=== PATIENT | female | born 1960 | race Caucasian/White ===

== ENCOUNTER 2019-05-24 16:34 | Emergency (ER) | payer MEDICARE, OTHER ==
[2019-05-24 17:21] LABS: ABS Basophils 0.1 10^3/ul (0-0.2); ABS Lymphocytes 1.4 10^3/ul (1.0-4.8); ABS Neutrophils 8.4 10^3/ul (1.5-7.7); Eosinophil % 0.4 %; Hematocrit 33 % (35-47); Hemoglobin 10.8 g/dL (12.0-16.0); Lymphocyte % 12.8 %; Mean Corpuscular HGB Conc 33 g/dL (31-36); Mean Corpuscular Hemoglobin 29 pg (27-31); Mean Corpuscular Volume 87 fL (80-97); Mean Platelet Volume 7.6 fL (7.4-10.4); Nucleated Red Blood Cells % 0.1; Platelet Count 376 10^3/uL (150-450); Red Blood Count 3.74 10^6 /uL (3.70-4.87); Red Cell Distribution Width 12 % (10-15)
[2019-05-24 17:31] LABS: INR 1.2 (0.82-1.09)
[2019-05-24] MEDS ORDERED: Magnesium Sulfate 2 GM IV* 2 GM/50 ML BAG IVPB ONE (17:31)
[2019-05-24 17:38] LABS: Albumin 3.6 g/dL (3.2-5.2); Albumin/Globulin Ratio 1.2 (1-3); BUN/Creatinine Ratio 15.8 (8-20); Calcium 9.1 mg/dL (8.6-10.3); EGFR African American 94.9 (>60); EGFR Non-African American 78.4 (>60); Globulin 3.1 g/dL (2-4); Potassium 3.5 mmol/L (3.5-5.0); Total Bilirubin 0.5 mg/dL (0.2-1.0); Total Protein 6.7 g/dL (6.4-8.9)
[2019-05-24 17:40] LABS: Troponin I 0.02 ng/mL (<0.04)
--- OUTSIDE RECORDS SUMMARY | 2019-05-24 17:51 | XMS REPORT | Continuity of Care Document ---
:1960 External Reference #:[id number] Author Name Marily Knott MD (transmitted by agent of provider Annelise Sauer) Address [address] [place] [address] Care Team Providers Name Role Phone Hemant Obrien MD - Internal Medicine Care Team Information Associate Pastor [phone] Problems Description No Information Available Social History Type Date Description Comments Sex Unknown Tobacco Use Start: Unknown End: Former Cigarette 40 Smoker 1 Pack Daily Smoking Status Reviewed: 05/24/19 Former Cigarette 40 Smoker 1 Pack Daily ETOH Use Denies alcohol use Tobacco Use Start: Unknown End: Patient is a former Unknown smoker Recreational Drug Use Denies Drug Use Exercise Type/Frequency Does not exercise Limited by breathing issue Allergies, Adverse Reactions, Alerts Active Allergies Reaction Severity Comments Date Chantix Made pt mean 05/24/2019 Medications Active Medications SIG Qnty Indications Ordering Provider Date Nebulizer System 1 unit q4 hours 1units J44.9 Marily Knott, 05/24/2019 ALL-In-One and as needed Misc Ipratropium 1 unit every 6 270ml J44.9 Marily Knott, 05/24/2019 Ursa/Albuterol hours as needed Sulfate 0.5-2.5(3)mg/3ML Solution Vitamin D 1 by mouth one Unknown time per week Atorvastatin Calcium Take 1 Tablet By Unknown 10mg Mouth Once Daily Tablets Loratadine 1 by mouth daily Hemant Obrien MD 10mg Tablets Flonase Allergy Relief 2 puffs each Unknown nostril daily 50mcg/Act Suspension Immunizations Description No Information Available Vital Signs Date Vital Result Comment 05/24/2019 9:42am Height 69 inches 5'9" Weight 221.12 lb Heart Rate 128 /min BP Systolic Sitting 118 mmHg Lue large cuff BP Diastolic Sitting 82 mmHg Lue large cuff O2 % BldC Oximetry 95 % On Ra BMI (Body Mass Index) 32.7 kg/m2 Results Description No Information Available Procedures Description No Information Available Medical Devices Description No Information Available Encounters Description No Information Available Assessments Date Code Description Provider 05/24/2019 J98.4 Other disorders of lung Marily Knott MD 05/24/2019 J44.9 Chronic obstructive pulmonary disease, Marily Knott MD unspecified 05/24/2019 Z87.891 Personal history of nicotine dependence Marily Knott MD 05/24/2019 I31.3 Pericardial effusion (noninflammatory) Marily Knott MD Plan of Treatment Future Appointment(s):05/29/2019 1:00 pm - [facility] MD at [facility]06/03/2019 10:45 am - Marily Knott MD at [facility]05/24/2019 - Marily Knott MDJ98.4 Other disorders of lungNew Orders:Endobronchial Ultrasound (Ebus), Ordered: Follow up:2 zofjeA60.9 Chronic obstructive pulmonary disease, unspecifiedNew Medication:Nebulizer System ALL-In-One - 1 unit q4 hours and as neededIpratropium Ursa/Albuterol Sulfate 0.5-2.5(3) mg/3ML - 1 unit every 6 hours as neededNew Orders:6 Minute Walk, Scheduled: 05/24/19PFTW/Spirometry Vol Pre/Post Bronchdilat Dlco Complete, Ordered: 05/24/19Z87.891 Personal history of nicotine chzgcatcirN06.3 Pericardial effusion (noninflammatory)New Orders: Echocardiogram, Scheduled: 05/24/19 Functional Status Description No Information Available Mental Status Description No Information Available Referrals Description No Information Available
--- NOTE | 2019-05-24 18:16 | ED ---
Shortness of Breath - HPI Summary HPI Summary: This patient is a 59 year old female presenting to [facility] with a chief complaint of SOB. She states she recently had a TTE with Dr. Knott following an abnormal CT chest due to a known mass in her lung. The TTE found pericardial effusion and cardiac tamponade. She states she has no other complaints besides the SOB. Pt denies any fever, chills, erythema of eyes, sore throat, CP, cough, abdominal pain, N/V, dysuria, hematuria, myalgia, edema, rash, or dizziness. - History of Current Complaint Chief Complaint: EDShortnessOfBreath Time Seen by Provider: 05/24/19 16:49 Hx Obtained From: Patient Onset/Duration: Lasting Days Dyspnea At: Rest - Allergy/Home Medications Allergies/Adverse Reactions: Allergies Allergy/AdvReac Type Severity Reaction Status Date / Time varenicline [From Chantix] Allergy Agitation Verified 05/24/19 16:40 Home Medications: Home Medications Atorvastatin* [Lipitor*] 10 mg PO DAILY 05/24/19 [History Confirmed 05/24/19] Ergocalciferol CAP* [Drisdol CAP*] 50,000 unit PO WEEKLY 05/24/19 [History Confirmed 05/24/19] LoraTADine TAB(NF) [Claritin 10 MG TAB(NF)] 10 mg PO DAILY 05/24/19 [History Confirmed 05/24/19] PMH/Surg Hx/FS Hx/Imm Hx Cardiovascular History: Reports: Hx Hypercholesterolemia Respiratory History: Reports: Hx Chronic Obstructive Pulmonary Disease (COPD), Hx Pneumonia Infectious Disease History: No Infectious Disease History: Denies: Traveled Outside the [place] in Last 30 Days - Family History Known Family History: Positive: Cardiac Disease, Hypertension, Diabetes - Social History Alcohol Use: None Substance Use Type: Reports: None Smoking Status (MU): Former Smoker Review of Systems Negative: Fever, Chills Negative: Erythema Negative: Sore Throat Negative: Chest Pain Positive: Shortness Of Breath. Negative: Cough Negative: Abdominal Pain, Vomiting, Nausea Negative: dysuria, hematuria Negative: Myalgia, Edema Negative: Rash Neurological: Other - Neg: Dizziness All Other Systems Reviewed And Are Negative: No Physical Exam - Summary Physical Exam Summary: Constitutional: Well-developed, Well-nourished, Alert. (-) Distressed Skin: Warm, Dry HENT: Normocephalic; Atraumatic Eyes: Conjunctiva normal Neck: Musculoskeletal ROM normal neck. (-) JVD, (-) Stridor, (-) Tracheal deviation Cardio: Rhythm regular, rate normal, Heart sounds normal; Intact distal pulses; The pedal pulses are 2+ and symmetric. Radial pulses are 2+ and symmetric. (-) Murmur Pulmonary/Chest wall: Effort normal. (-) Respiratory distress, (-) Wheezes, (-) Rales Abd: Soft, (-) tenderness, (-) Distension, (-) Guarding, (-) Rebound Musculoskeletal: (-) Edema Lymph: (-) Cervical adenopathy Neuro: Alert, Oriented x3 Psych: Mood and affect Normal Triage Information Reviewed: Yes Vital Signs On Initial Exam: Initial Vitals Temp Pulse Resp BP Pulse Ox 99.7 F 132 22 126/86 95 05/24/19 16:37 05/24/19 16:37 05/24/19 16:37 05/24/19 16:37 05/24/19 16:37 Vital Signs Reviewed: Yes Procedures - Sedation Patient Received Moderate/Deep Sedation with Procedure: No Diagnostics - Vital Signs Vital Signs Temp Pulse Resp BP Pulse Ox 05/24/19 17:24 99 19 109/76 94 05/24/19 17:00 101 26 95 05/24/19 16:53 99 23 112/83 96 05/24/19 16:52 127 24 96 05/24/19 16:37 99.7 F 132 22 126/86 95 - Laboratory Lab Results: Lab Results 05/24/19 05/24/19 05/24/19 Range/Units 17:03 17:03 17:03 WBC 11.0 H (3.5-10.8) 10^3/uL RBC 3.74 (3.70-4.87) 10^6 /uL Hgb 10.8 L (12.0-16.0) g/dL Hct 33 L (35-47) % MCV 87 (80-97) fL MCH 29 (27-31) pg MCHC 33 (31-36) g/dL RDW 12 (10-15) % Plt Count 376 (150-450) 10^3/uL MPV 7.6 (7.4-10.4) fL Neut % (Auto) 76.6 % Lymph % (Auto) 12.8 % Spalding % (Auto) 9.5 % Eos % (Auto) 0.4 % Baso % (Auto) 0.7 % Absolute Neuts (auto) 8.4 H (1.5-7.7) 10^3/ul Absolute Lymphs (auto) 1.4 (1.0-4.8) 10^3/ul Absolute Monos (auto) 1.0 H (0-0.8) 10^3/ul Absolute Eos (auto) 0.0 (0-0.6) 10^3/ul Absolute Basos (auto) 0.1 (0-0.2) 10^3/ul Absolute Nucleated RBC 0.0 10^3/ul Nucleated RBC % 0.1 INR (Anticoag Therapy) 1.20 H (0.82-1.09) Sodium 136 (135-145) mmol/L Potassium 3.5 (3.5-5.0) mmol/L Chloride 104 (101-111) mmol/L Carbon Dioxide 23 (22-32) mmol/L Anion Gap 9 (2-11) mmol/L BUN 12 (6-24) mg/dL Creatinine 0.76 (0.51-0.95) mg/dL Est GFR ( Amer) 94.9 (>60) Est GFR (Non-Af Amer) 78.4 (>60) BUN/Creatinine Ratio 15.8 (8-20) Glucose 97 (70-100) mg/dL Calcium 9.1 (8.6-10.3) mg/dL Total Bilirubin 0.50 (0.2-1.0) mg/dL AST 12 L (13-39) U/L ALT 13 (7-52) U/L Alkaline Phosphatase 99 (34-104) U/L Troponin I 0.02 (<0.04) ng/mL Total Protein 6.7 (6.4-8.9) g/dL Albumin 3.6 (3.2-5.2) g/dL Globulin 3.1 (2-4) g/dL Albumin/Globulin Ratio 1.2 (1-3) Result Diagrams: 05/24/19 17:03 05/24/19 17:03 Lab Statement: Any lab studies that have been ordered have been reviewed, and results considered in the medical decision making process. - EKG 1715 Cardiac Rate: Tachycardia - 130 BPM Summary of EKG Findings: Junctional tachycardia. No STEMI. ED Provider has reviewed and interpreted this EKG. 1640 Cardiac Rate: Tachycardia - 126 BPM EKG Rhythm: Sinus Tachycardia Ectopy: PVCs Summary of EKG Findings: No STEMI. ED Physician has reviewed and interpreted this EKG. Re-Evaluation - Re-Evaluation First Eval Re-Evaluation Time: 20:20 Change: Unchanged - updated about transport plan Course/Dx - Course Course Of Treatment: This patient is a 59 year old female presenting to [facility] with a chief complaint of SOB. Reviewed Dr. Knott's visit, Pulmonology. CT Chest from [facility] revealed 1. 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 There is potentially a 2nd mass within the left upper lobe although this is more likely due to irregular pneumonitis. 2. Mildly enlarged mediastinal lymph nodes suggesting metastatic disease. 3. Patchy ground -glass nodules in the right lung suggesting infection. The patient is from [place] so she will be transferred to [facility] in [place]. TTE from Dr. Knott found 1. Left ventricle cavity is normal in size. Mild asymmetric hypertrophy of the left ventricle. Normal global wall motion and systolic function. Indeterminate diastolic filling patter. Calcuated EF 54%. Right ventricle shows diastolic filling compromise. Normal valve function. Moderate pericardial effusion iwth clear fluids, fibrous material adhering to epicardium. Hemodynamic compromise is consistent with tamponade physiology. IVC is dilated with respiratory variation. No prior echo to compare. EKG at 1640 revealed Sinus Tach with PVCs. EKG at 1715 revealed junctional tachycardia. She was administered magnesium sulfate in the ED. Dr. Willis, Cardiology saw the patient in the ED and recommended transfer. Dr. Murdock, at [facility] ED accepted the patient for transfer. This plan for transfer was discussed with the patient and she was agreeable with this plan. - Diagnoses Provider Diagnoses: Cardiac tamponade, Pericardial effusion, Lung mass - Physician Notifications Discussed Care of Patient With: Agustin Willis - Cardiology Time Discussed With Above Provider: 18:56 Instructed by Provider To: Transfer - Critical Care Time Critical Care Time: 30-74 min - 60 mins Discharge ED - Sign-Out/Discharge Documenting (check all that apply): Patient Departure - Transfer - Discharge Plan Condition: Stable Disposition: TRANS HIGHER LVL OF CARE FAC Referrals: Hemant Obrien MD [Primary Care Provider] - - Billing Disposition and Condition Condition: STABLE Disposition: Trans Higher Lvl of Care Fac - Attestation Statements Document Initiated by Fab: Yes Documenting Scribe: Javan Shah Provider For Whom Fab is Documenting (Include Credential): Vladimir Siddiqi MD Scribe Attestation: Javan Villanueva, scribed for Vladimir Siddiqi MD on 05/24/19 at 2019. Scribe Documentation Reviewed: Yes Provider Attestation: The documentation as recorded by the Javan ackerman accurately reflects the service I personally performed and the decisions made by me, Vladimir Siddiqi MD Status of Scribe Document: Viewed
[2019-05-24 19:09] LABS: C Reactive Protein 133.46 mg/L (<8.01)
[2019-05-24 20:33] LABS: Erythrocyte Sed Rate 60 mm/Hr (0-29)
[2019-05-24 20:43] VITALS: BP 123/78
--- NOTE | 2019-05-24 22:13 | CONS ---
CC: Dr. Agustin Willis; Dr. Knott CARDIOLOGY CONSULTATION: DATE OF CONSULT: 05/24/19 CONSULTING PHYSICIAN: Dr. Siddiqi. REASON FOR EVALUATION: Tamponade. HISTORY OF PRESENT ILLNESS: This is a 59-year-old woman with a history of tobacco use, who recently had cough, treated with 3 different courses of antibiotics, but because of persistent cough went to the emergency room in [place] last week. She had a CT scan which reportedly as per Dr. Knott's note revealed narrowing of the left upper lobe bronchus with possibility of endobronchial mass, also consolidation postobstructive pneumonia in the left upper lobe. She was also noted to have a focal area of consolidation in the left upper lobe of 3 cm, and has had scattered ground-glass nodules in the right lung, mostly upper lobe. She was noted to have mildly enlarged mediastinal lymph nodes, pretracheal lymph node measuring 1.7 x 1.2, and evidence of small pericardial effusion. She said that she has been short of breath with exertion which has worsened over the last week. She says just walking a few feet will provoke shortness of breath. She said that she was able to walk 6 minutes on a walk test today per Dr. Knott, but got very winded at the end. She denies fevers. She was chilled when she came into the emergency room. She denies orthopnea. She has had no syncope or near syncope. She was sent for an echocardiogram, which was performed today. The report revealed mild asymmetric hypertrophy of the left ventricle with normal LV function, EF of 54%, RV with diastolic filling compromise, moderate pericardial effusion with clear fluid, fibrous material hanging at the epicardium, hemodynamic compromise consistent with tamponade physiology, IVC was dilated with respiratory variation, and there was no prior echo. PA pressure was estimated at approximately 36 mmHg. LVOT velocity was 0.9. Because of those findings, she was encouraged to come to the emergency room and is here for evaluation. PAST MEDICAL HISTORY: Includes recently diagnosed endobronchial lesion and pericardial effusion; history of tobacco use, a pack per day for 40 years, discontinued this week. She has a history of hyperlipidemia, on Lipitor. She denies alcohol use. She drinks 1 to 2 cups of coffee a day. PAST SURGICAL HISTORY: Tubal ligation, cholecystectomy. SOCIAL HISTORY: She tends bar. She is . Raises 3 children. She has 2 sisters and accompanied by 1 sister. Her mother of CVA and sepsis at a later stage of life. Her father of renal failure. He had coronary bypass grafting in his 40s and at 66. REVIEW OF SYSTEMS: Review of systems x10 was negative except as above. PHYSICAL EXAM: She is a well-developed, anxious appearing woman. Her heart rate was in the 120s to 130s. Her pressure was 152/39/70. Pulsus paradoxus of 13 mm. JVD approximately 12 cm. Carotid 2+ without bruits. No cervical adenopathy or thyromegaly. Extraocular muscles are intact. Sclerae nonicteric. Cardiac Exam: S1, S2, tachycardic. No clear murmurs, gallops, or rubs. Chest was clear. No CVAT. Abdomen: Bowel sounds present, nontender. Femoral pulses are intact without bruits. Distal pulses intact. Extremities: No edema. Negative Homans' sign. DIAGNOSTIC STUDIES/LAB: Include a white count of 11, hemoglobin of 10.8, hematocrit 33, platelets 376. Potassium low normal at 3.5, BUN of 12, creatinine of 0.76, sodium 136. Troponin 0.02. EKG reveals tachycardia, probably sinus tachycardia with low-amplitude T waves at 130 and non-specific ST-T changes. There is respiratory variation in the QRS complex consistent with pericardial effusion. Her EKG from 16:40 revealed sinus tachycardia at 120s, nonspecific ST-T changes and PVC. Respiratory rate of 19, O2 sat 94% IMPRESSION AND PLAN: It is my impression that Ms. Walter has a history of endobronchial lesion, pericardial effusion with features consistent with hemodynamic compromise. She also has a presentation here, progressive shortness of breath, tachycardia, and pulsus paradoxus consistent with hemodynamic compromise. I did discuss the case with her and and Dr. Siddiqi, the ER physician. I am concerned that she is developing significant limitation due to her pericardial effusion and tamponade physiology. I did discuss with her and her sister at the bedside. The importance of being in a facility that could provide her with treatment for this condition including pericardial window since that service is not available here. I do not believe she needs a pericardiocentesis emergently, but she is at risk for deterioration in the near future which may necessitate urgent pericardiocentesis She requires close monitoring and the ready availability or pericardiocentesis. Therefore, I have recommended the followin. Will continue IV hydration as you are doing. 2. We will transfer her to a facility that has CT surgery support and could provide and perform pericardial window/pericardiocentesis on an urgent basis or pericardiocentesis on an emergent basis if needed. 3. Would restrict her activity to bedrest for now. Further recommendations will depend on her clinical course. CRITICAL CARE TIME: Forty-five minutes assessing the patient, consulting with the patient/her sister at the bedside, and coordinating care with Dr. Siddiqi and Dr. Nance in this critically ill patient, . [id number]/[facility] #: [id number] [facility] MEDICAL CENTERPaulina
== END 2019-05-24 20:38 | disposition short-term general hospital (02) ==
LOC: ED 16:34
DX: I31.4 Cardiac tamponade (principal); I31.3 Pericardial effusion (noninflammatory); R91.8 Other nonspecific abnormal finding of lung field; R06.02 Shortness of breath; R59.0 Localized enlarged lymph nodes; R00.0 Tachycardia, unspecified; E78.00 Pure hypercholesterolemia, unspecified; J44.9 Chronic obstructive pulmonary disease, unspecified; Z88.8 Allergy status to other drugs, medicaments and biological substances; Z87.891 Personal history of nicotine dependence
CPT/HCPCS: 36415; 80053; 83735; 84484; 85025; 85610; 85652; 86140; 93005; 96365; 99284; J3475